=== PATIENT | male | born 1995 ===

== ENCOUNTER 2019-03-05 16:27 | Emergency (ER) | payer BC ==
[2019-03-05 16:58] VITALS: BP 130/69
--- NOTE | 2019-03-05 17:13 | UC ---
Psychiatric Complaint HPI - HPI Summary HPI Summary: Pt out of lexapro (last dose yesterday. Has appt to see his provider on Thursday no complaints desires enough meds to bridge the gap no SI or HI - History Of Current Complaint Chief Complaint: UCMedRefill Stated Complaint: PERSONAL Time Seen by Provider: 03/05/19 17:04 Hx Obtained From: Patient Severity Currently: None Aggravating Factor(s): Nothing Alleviating Factor(s): Nothing Associated Signs And Symptoms: Negative - Allergies/Home Medications Allergies/Adverse Reactions: Allergies Allergy/AdvReac Type Severity Reaction Status Date / Time No Known Allergies Allergy Verified 03/05/19 16:50 Home Medications: Home Medications Escitalopram Oxalate [Lexapro 10 mg] 10 mg PO DAILY 03/05/19 [History Confirmed 03/05/19] PMH/Surg Hx/FS Hx/Imm Hx Previously Healthy: Yes Psychological History: Anxiety - Surgical History Surgical History: Yes Surgery Procedure, Year, and Place: wisdom teeth extractions - Family History Known Family History: Negative: Cardiac Disease, Hypertension, Diabetes - Social History Alcohol Use: None Substance Use Type: None Smoking Status (MU): Light Every Day Tobacco Smoker Type: Cigarettes Amount Used/How Often: 1/2 ppd Have You Smoked in the Last Year: Yes Review of Systems All Other Systems Reviewed And Are Negative: Yes Constitutional: Positive: Negative Skin: Positive: Negative Eyes: Positive: Negative ENT: Positive: Negative Respiratory: Positive: Negative Cardiovascular: Positive: Negative Gastrointestinal: Positive: Negative Genitourinary: Positive: Negative Motor: Positive: Negative Neurovascular: Positive: Negative Musculoskeletal: Positive: Negative Neurological: Positive: Negative Psychological: Positive: Negative Physical Exam Triage Information Reviewed: Yes Appearance: Well-Appearing, No Pain Distress, Well-Nourished Vital Signs: Initial Vital Signs Temp 98.3 F 03/05/19 16:51 Pulse 60 03/05/19 16:51 Resp 16 03/05/19 16:51 BP 130/69 03/05/19 16:51 Pulse Ox 99 03/05/19 16:51 Vital Signs Reviewed: Yes Eyes: Positive: Conjunctiva Clear ENT: Positive: Hearing grossly normal. Negative: Nasal congestion, Nasal drainage, Trismus, Muffled voice, Hoarse voice Neck: Positive: Supple Respiratory: Positive: Lungs clear, Normal breath sounds, No respiratory distress Cardiovascular: Positive: RRR, No Murmur Neurological: Positive: Alert, Muscle Tone Normal Skin Exam: Normal Psych Complaint Course/Dx - Differential Dx/Diagnosis Provider Diagnosis: Medication refill, Anxiety, Elevated BP without diagnosis of hypertension, Smoker Discharge - Sign-Out/Discharge Documenting (check all that apply): Patient Departure All imaging exams completed and their final reports reviewed: No Studies - Discharge Plan Condition: Stable Disposition: HOME Prescriptions: Escitalopram Oxalate [Lexapro 10 mg] 10 mg PO DAILY #5 tab Patient Education Materials: Medicine Refill (ED) Referrals: No Primary Care Phys,NOPCP [Primary Care Provider] - Additional Instructions: Keep Thursday appt as planned - Billing Disposition and Condition Condition: STABLE Disposition: Home
== END 2019-03-05 17:12 | disposition home or self-care (01) ==
LOC: UCCORT 16:27
DX: F41.9 Anxiety disorder, unspecified (principal); R03.0 Elevated blood-pressure reading, without diagnosis of hypertension; Z76.0 Encounter for issue of repeat prescription; F17.210 Nicotine dependence, cigarettes, uncomplicated
CPT/HCPCS: 99212; G0463